=== PATIENT | male | born 1965 | race Caucasian/White ===

== ENCOUNTER 2017-06-30 16:02 | Emergency (ER) | payer BC ==
--- NOTE | 2017-06-30 16:09 | UC ---
Lower Extremity/Ankle HPI - HPI Summary HPI Summary: 51 YEAR OLD MALE PRESENTS WITH COMPLAINS RIGHT FOOT PAIN SECONDARY TO A FOOT ULCER. I WILL SEND HIM TO THE ER FOR EXCRUCIATING FOOT PAIN. - History of Current Complaint Stated Complaint: RIGHT FOOT PAIN Time Seen by Provider: 06/30/17 16:08 Onset/Duration: Gradual Onset Severity Initially: Moderate Severity Currently: Moderate Pain Scale Used: 0-10 Numeric - 5 Aggravating Factor(s): Standing Alleviating Factor(s): Rest Able to Bear Weight: Yes - Allergies/Home Medications Allergies/Adverse Reactions: Allergies Allergy/AdvReac Type Severity Reaction Status Date / Time Ketorolac Tromethamine Allergy Severe Difficulty Verified 06/30/17 16:30 [From Toradol] Breathing Adhesive Tape Allergy Intermediate Blisters Verified 06/30/17 16:30 PMH/Surg Hx/FS Hx/Imm Hx Previously Healthy: Yes - Surgical History Surgical History: Yes Surgery Procedure, Year, and Place: appy, gallbladder, hernia x 7, both feet ( toe issues),LEFT KNEE; debridement right foot wound, POLYPS UNDER KNEECAP LEFT REMOVED-ARTHROSCOPIC SURGERY LEFT KNEE - Family History Known Family History: Positive: Unknown, Hypertension, Diabetes - Social History Alcohol Use: None Substance Use Type: Prescribed Substance Use Comment - Amount & Last Used: morphine at 8am today Smoking Status (MU): Heavy Every Day Tobacco Smoker Type: Cigarettes Amount Used/How Often: 1ppd Length of Time of Smoking/Using Tobacco: 38 yrs Have You Smoked in the Last Year: Yes Household Exposure Type: Cigarettes Review of Systems Constitutional: Negative Skin: Other - RIGHT FOOT ULCER Eyes: Negative ENT: Negative Respiratory: Negative Cardiovascular: Negative Gastrointestinal: Negative Genitourinary: Negative Motor: Negative Neurovascular: Negative Musculoskeletal: Negative Neurological: Negative Psychological: Negative All Other Systems Reviewed And Are Negative: Yes Physical Exam Triage Information Reviewed: Yes Eye Exam: Normal ENT Exam: Normal Dental Exam: Normal Neck exam: Normal Neck: Positive: 1 Respiratory Exam: Normal Cardiovascular Exam: Normal Abdominal Exam: Normal Musculoskeletal Exam: Normal Neurological Exam: Normal Psychological Exam: Normal Skin: Positive: Other - RIGHT FOOT PAIN Lower Extremity Course/Dx - Differential Dx/Diagnosis Provider Diagnoses: RIGHT FOOT ULCER. RIGHT FOOT PAIN Discharge - Discharge Plan Condition: Stable Disposition: HOME Patient Education Materials: Puncture Wound (ED), Wound Infection (ED) Referrals: Neil Berry [Physician Forensic Anthropologist] - Additional Instructions: PLEASE GO TO ER FOR SEVERE LEFT FOOT PAIN AND INFECTION.
[2017-06-30 16:29] VITALS: BP 116/55
== END 2017-06-30 16:41 | disposition home or self-care (01) ==
LOC: UCCORT 16:02
DX: L97.519 Non-pressure chronic ulcer of other part of right foot with unspecified severity (principal); M79.671 Pain in right foot; Z91.09 Other allergy status, other than to drugs and biological substances; F17.210 Nicotine dependence, cigarettes, uncomplicated
CPT/HCPCS: 99212; G0463